=== PATIENT | female | born 1965 | race Caucasian/White ===

== ENCOUNTER 2016-08-27 10:08 | Emergency (ER) | payer MEDICARE, MEDICAID ==
[2016-08-27 10:08] VITALS: BMI 27.3
[2016-08-27 10:17] VITALS: RESP 18; O2SAT 97
--- NOTE | 2016-08-27 10:25 | C.PDOC ---
History Of Present Illness 51 yr old female with PMHx of NIDDM, referred to ED by automatic profile sander operator for evaluation of left lower leg redness and pain gradually developing for the past 3 days. As per Bookkeeping Service Sales Agent note, request Venous Duppler of LLE to r/o DVT. Otherwise, Patient denies trauma or injury, fever, chills, sore throat, chest pain, SOB, dyspnea, diaphoresis, palpitation, cough, denies weakness, sensory or vascular deficits to Left leg. Ambulate to ED for evaluation, not in any apparent distress. Time Seen by Provider: 08/27/16 10:10 Chief Complaint (Nursing): Lower Extremity Problem/Injury History Per: Patient History/Exam Limitations: no limitations Onset/Duration Of Symptoms: Gradual (3 days) Past Medical History Reviewed: Historical Data, Nursing Documentation, Vital Signs Vital Signs: Last Vital Signs Temp 97.5 F L 08/27/16 10:15 Pulse 71 08/27/16 10:15 Resp 18 08/27/16 10:15 BP 138/73 08/27/16 10:15 Pulse Ox 97 08/27/16 11:03 - Medical History PMH: HTN, Hypercholesterolemia, Hypothyroidism, Osteoporosis Family History: States: No Known Family Hx - Social History Hx Alcohol Use: No Hx Substance Use: No - Immunization History Hx Tetanus Toxoid Vaccination: No Hx Influenza Vaccination: No Hx Pneumococcal Vaccination: No Review Of Systems Except As Marked, All Systems Reviewed And Found Negative. Cardiovascular: Negative for: Chest Pain Respiratory: Negative for: Shortness of Breath Gastrointestinal: Negative for: Nausea, Vomiting Musculoskeletal: Positive for: Leg Pain (Left lower leg pain and redness ). Negative for: Foot Pain Neurological: Negative for: Weakness, Numbness Physical Exam - Physical Exam Appears: Non-toxic, No Acute Distress Skin: Warm, Dry, No Rash, Other ((+) Diffuse erythema over left lower leg . NO edema, no proximal streaking, no warmth to touch.) Oral Mucosa: Moist Throat: No Erythema, No Exudate, No Drooling Neck: Supple Chest: No Tenderness Cardiovascular: Rhythm Regular, No Murmur Respiratory: No Decreased Breath Sounds, No Accessory Muscle Use, No Rales, No Rhonchi, No Stridor, No Wheezing Gastrointestinal/Abdominal: Soft, No Tenderness Extremity: Normal ROM, No Pedal Edema, Calf Tenderness (Left calf ), Capillary Refill (less than 2sec to Left foot), No Deformity Pulses: Left Dorsalis Pedis: Normal, Right Dorsalis Pedis: Normal Neurological/Psych: Oriented x3, Normal Speech, Normal Motor, Normal Sensation, Normal Reflexes ED Course And Treatment O2 Sat by Pulse Oximetry: 97 (RA ) Pulse Ox Interpretation: Normal - CT Scan/US Venous Duplex Other Rad Studies (CT/US): Read By Radiologist, Radiology Report Reviewed CT/US Interpretation: (-) DVT LLE. Progress Note: On re-evaluation, pt is afebrile, hemodynamicaly stable. Non- toxic. PulseOx 97% RA. ENT: no acute findings. Lungs: CTA B/L, BS equal B/L. CVS: (+)S1S2, reg. Abd: benign. Left LE: exam c/w lower leg erythema r/o cellulitis vs DVT. FAROM, no neurovascular deficits. Neurologicaly intact. Doppler US of LLE (-) DVT. Abx given. Pt advised and ref. to F/u with PMD, parks recreation director in 2 days for re-eavl. Return to ED if any worsening or new changes. Medical Decision Making Medical Decision Making: PLAN: * Venous Duplex Disposition Counseled Patient/Family Regarding: Studies Performed, Diagnosis, Need For Followup, Rx Given - Disposition Referrals: Kena Bhatia MD [Medical Doctor] - Javier Montilla DPM [Doctor Podiatric Medicine] - Disposition: HOME/ ROUTINE Disposition Time: 11:14 Condition: STABLE Additional Instructions: Encourage fluids Keep leg up elevated Take medication as prescribed Follow up with PMD, Bookkeeping Service Sales Agent in 2 days for re-evaluation. Return to ED if any worsening or new changes. Prescriptions: Amoxicillin/Clavulanate [Augmentin 875 MG-125 MG] 1 tab PO BID #14 tab Instructions: Cellulitis (ED) - Clinical Impression Clinical Impression: Cellulitis - PA / CIVIL ENGINEERING DRAFTSPERSON / Resident Statement MD/DO has reviewed & agrees with the documentation as recorded. - Scribe Statement The provider has reviewed the documentation as recorded by the Scribe Keerthi Merida All medical record entries made by the Scribe were at my direction and personally dictated by me. I have reviewed the chart and agree that the record accurately reflects my personal performance of the history, physical exam, medical decision making, and the department course for this patient. I have also personally directed, reviewed, and agree with the discharge instructions and disposition.
[2016-08-27] MEDS ORDERED: Amoxicillin-Clav 875-125 mg Tab PO STA (11:14)
[2016-08-27 11:30] VITALS: BP 122/78; PULSE 75; TEMP 98
[2016-08-27] MEDS ORDERED: Amoxicillin-Clav 875-125 mg Tab PO ONE (11:41)
--- NOTE | 2016-08-29 11:11 | VASCLAB ---
PROCEDURE: Left Lower Extremity Venous Duplex Exam. HISTORY: injury PRIORS: None. TECHNIQUE: Left common femoral, femoral, popliteal and posterior tibial, peroneal and great saphenous veins were evaluated. Flow was assessed with color Doppler, compressibility, assessment of phasic flow and augmentation response. Report prepared by FRANCESCO Hwathorne FINDINGS: LEFT: 1. Common Femoral Vein: 1.1. Compressibility - Fully compressible: Thrombus - None : Flow - Phasic: Augmentation -Normal: Reflux - None. 2. Femoral Vein: 2.1. Compressibility - Fully compressible: Thrombus - None: Flow - Phasic: Augmentation -Normal: Reflux - None. 3. Popliteal Vein: 3.1. Compressibility - Fully compressible: Thrombus - None: Flow - Phasic: Augmentation -Normal: Reflux - None. 4. Posterior Tibial Vein: 4.1. Compressibility - Fully compressible: Thrombus - None: Flow - Phasic: Augmentation -Normal: Reflux - None. 5. Peroneal Vein: 5.1. Compressibility - : Thrombus - : Flow - : Augmentation -: Reflux - . 6. Great Saphenous Vein: 6.1. Compressibility - Fully compressible: Thrombus - None: Flow - Phasic: Augmentation - Normal: Reflux - None. OTHER FINDINGS: The peroneal veins and greater saphenous vein in the thigh area were not visualized due to swelling. IMPRESSION: No evidence of deep or superficial vein thrombosis of the left lower extremity with excellent venous flow. Normal valve function noted of the left side. Normal venous flow noted in the right common femoral vein.
== END 2016-08-27 11:45 | disposition home or self-care (01) ==
LOC: C.ER 10:08
DX: L03.116 Cellulitis of left lower limb (principal)

== ENCOUNTER 2018-03-01 09:49 | Outpatient (CLI) | payer MEDICARE, MEDICAID | END 2018-03-01 09:50 | disposition home or self-care (01) | LOC: C.CTH 09:49 ==

== ENCOUNTER 2018-06-11 10:25 | Outpatient (CLI) | payer MEDICARE, MEDICAID | END 2018-06-11 10:26 | disposition home or self-care (01) | LOC: C.LAB 10:25 | DX: E11.9 Type 2 diabetes mellitus without complications (principal); E03.9 Hypothyroidism, unspecified; I10 Essential (primary) hypertension ==